=== PATIENT | male | born 1985 | race Caucasian/White ===

== ENCOUNTER 2018-05-12 22:24 | Emergency (ER) | payer SELFPAY ==
[~2018-05-12] VITALS: Ht 170.2 cm; Wt 72.6 kg
[2018-05-12 22:31] VITALS: BP_SYST 131
[2018-05-12 23:47] VITALS: BP_SYST 134
== END 2018-05-12 23:47 ==
LOC: SED 22:24
DX: Z02.89 Encounter for other administrative examinations (principal); R03.0 Elevated blood-pressure reading, without diagnosis of hypertension
CPT/HCPCS: 99283

== ENCOUNTER 2020-05-20 18:11 | Emergency (ER) | payer MEDICAID ==
[~2020-05-20] VITALS: Ht 182.9 cm; Wt 90.7 kg
[2020-05-20 18:15] VITALS: BP_SYST 125
[2020-05-20] MEDS ORDERED: NACL 0.9% 1,000 ML IV ONE (18:15)
--- NOTE | 2020-05-20 18:15 | NUR ---
Patient to [facility] for evaluation. Side rails up. Report given to SHIVAM Chaudhari
--- NOTE | 2020-05-20 18:18 | NUR ---
Marlena Ivey at bedside examining patient
--- NOTE | 2020-05-20 18:20 | NUR ---
Pt brought by Cyndie [email or web address], pt presents to ER with L wrist, L thumb, L toe pain , denies trauma, skin pink an warm, radial pulses strong, will cont to monitor.
[2020-05-20] MEDS ORDERED: KETOROLAC TROMETHAMINE 30 MG VIAL IM ONE (18:30)
[2020-05-20 18:40] VITALS: BP_SYST 125
--- NOTE | 2020-05-20 18:41 | NUR ---
Patient given written and verbal discharge instructions and verbalizes understanding. ER MD discussed with patient the results and treatment provided. Patient in stable condition. ID arm band removed. No Rx given. Patient educated on pain management and to follow up with PMD. Pain Scale 2/10 tolerable for patient . Opportunity for questions provided and answered. Medication side effect fact sheet provided.
== END 2020-05-20 18:41 ==
LOC: SED 18:11
DX: M25.532 Pain in left wrist (principal); R68.84 Jaw pain; M21.612 Bunion of left foot
CPT/HCPCS: 99283; J1885